=== PATIENT | male | born 1980 ===

== ENCOUNTER 2025-05-27 00:42 | Emergency (ER) | payer OTHER, SELFPAY ==
[2025-05-27 00:45] VITALS: BP 142/101
--- NOTE | 2025-05-27 02:30 | ED.SKININJ ---
HPI-Injury
General
Chief Complaint: Skin Problem
Source: patient
Exam Limitations: none
Time Seen by Provider: 05/27/25 02:08
Nursing documentation reviewed up to this point in time: agreed with
History of Present Illness-Injury
Initial Injury comments:
Note:
CHIEF COMPLAINT(S)
Suspected poison christin with swelling.
HISTORY OF PRESENT ILLNESS
The patient is a 44-year-old male presenting with concerns about a rash he believes to be poison christin. The patient reports swelling and redness, stating, 'its really swollen' and expressing concern over the appearance. The swelling appears to be more
pronounced in certain areas. The patient notes the swelling and the appearance of the rash is concerning him.
CHRONIC MEDICAL CONDITIONS SIGNIFICANTLY AFFECTING CARE
The patient is noted to not have diabetes.
PHYSICAL EXAM
General: Alert, no acute distress.
Skin: Redness and swelling observed at the site of suspected poison christin. Bilateral anterior forearms
Head: Normocephalic, atraumatic.
Neck: Supple, trachea midline.
Eye Ears, Nose, Mouth and Throat: Oral mucosa moist.
Cardiovascular: Normal peripheral perfusion, no edema.
Respiratory: Respirations are non-labored.
Back: Normal range of motion
Musculoskeletal: Normal range of motion, normal strength.
Neurological: Alert and oriented to person, place, time, and situation, no focal neurological deficit observed.
Psychiatric: Cooperative, appropriate mood & affect.
PLAN
The patient will be started on a course of steroids to reduce inflammation. Additionally, initiation of an antibiotic, likely Keflex (cephalexin), is planned due to the concern of infection from the redness and swelling around the affected area.
DIFFERENTIAL DIAGNOSIS
The Differential Diagnosis includes, in no particular order and is not limited to:
1. Contact dermatitis (possibly from poison christin).
2. Cellulitis.
3. Allergic reaction.
4. Insect bite or sting.
5. Erythema multiforme.
6. Impetigo.
7. Herpes zoster.
8. Eczema exacerbation.
9. Superficial thrombophlebitis.
10. Venous stasis dermatitis.
Disposition:
SUMMARY OF ENCOUNTER
The 44-year-old male presented with suspected poison christin contact dermatitis on his forearms, with the right forearm showing signs of developing cellulitis. A dose of dexamethasone was administered to address inflammation and Keflex (cephalexin) was
started to treat potential infection. The patient was discharged home.
DISPOSITION
Discharge
ASSESSMENT
Suspected poison christin contact dermatitis with developing cellulitis in the right forearm.
EMERGENCY TREATMENTS ADMINISTERED
Dexamethasone administered.
PLAN
The patient was started on cephalexin (Keflex) for potential cellulitis. Dexamethasone was administered to reduce inflammation.
MEDICATION RECONCILIATION
1. Cephalexin (Keflex) prescribed for cellulitis.
2. Dexamethasone dose administered for inflammation.
MEDICAL DECISION MAKING
-Complexity of Data Reviewed:
Contact dermatitis, possibly from poison christin. Developing cellulitis noted.
-Data:
Category 1
Cephalexin initiated for suspected cellulitis.
-Risk:
Prescription medication was prescribed: cephalexin (Keflex) for cellulitis.
DIAGNOSIS
L23.7 - Allergic contact dermatitis due to other plants
L03.113 - Cellulitis of the right upper limb
Phy Exam
Physical Exam
Physical Exam:
.
Course
Orders/Labs/Results
Orders:
Orders
05/27/25 02:28
Cephalexin Monohydrate [Keflex] 500 mg PO NOW STA
Dexamethasone Pf [Decadron] 10 mg PO NOW STA
Vital Signs
Initial and Last Documented VS:
Initial Vital Signs
Temp Pulse Resp BP Pulse Ox
98.7 F 99 16 142/101 97
05/27/25 00:45 05/27/25 00:45 05/27/25 00:45 05/27/25 00:45 05/27/25 00:45
Last Documented Vital Signs
Temp Pulse Resp BP Pulse Ox
98.7 F 99 16 142/101 97
05/27/25 00:45 05/27/25 00:45 05/27/25 00:45 05/27/25 00:45 05/27/25 00:45
*Pulse Oximetry
SaO2: 97
Oxygen Mode of Delivery: Room air
Patient hypoxic: no
*Critical Care Note
Total Time (30-74mins, 75-104mins- exclusive of procedures): Not Applicable
ED Attending Note
-
Portions of this chart may have been created with voice recognition software.� Occasional wrong word or��sound alike� substitutions may have occurred due to the inherent limitations of voice recognition software.
Discharge Plan
Departure
Patient Disposition: Home (Routine Discharge)
Date of Disposition: 05/27/25
Time of Disposition: 02:30
Patient with high blood pressure during this ER visit?: Yes
Condition: Good
Discharge Problem:
Poison christin dermatitis, Cellulitis
Instructions: Wound Care (DC), Poison Christin, Poison [place], Poison [place] [facility], Cellulitis (skin infection) in adults - ED discharge instructions, BLOOD PRESSURE
Prescriptions:
New
cephalexin 500 mg capsule
500 mg PO BID 7 Days Qty: 14 0RF
Activity Restrictions/Additional Instructions:
Thank You for choosing [facility].
It was a pleasure meeting you and taking part in your care. We hope for your continued healing and wellness.
Please read discharge instructions in their entirety. However, they are for general education and may not describe your exact diagnosis at discharge. Information on your ER visit and medical conditions were discussed with you along with appropriate
follow up information...
If indicated, please take your medications as instructed and indicated on discharge paperwork.
Please schedule a follow up appointment as directed. Call to schedule an appointment
Please return to the emergency department with ANY change in, persisting, or worsening of symptoms. If any of your symptoms do not improve, or persist, or become more severe within 6-12 hours, please return to the emergency department for further
care.
Please return to the emergency department if you develop a headache, neck pain/stiffness, fever greater than 100.4F, chest pain, shortness of breath, persistent nausea, vomiting, slurred speech, difficulty walking, numbness/tingling, weakness, signs
of infection or any other symptoms that are worrisome to you.
If you have any questions or concerns please do not hesitate to call the Hospital at or E-mail me directly at [email or web address]
Interventions
Interventions:
*Risk Screen - Suicide Last Done: 05/27/25 00:45
*General Assessment Last Done: 05/27/25 00:45
*Neglect/Abuse Screening Last Done: 05/27/25 00:45
Discharge Date and Time
Print Language: MAORI
[2025-05-27 03:04] VITALS: BMI 27.3
[2025-05-27] MEDS: KEFLEX 500 MG PO (03:04)
[2025-05-27] MEDS: DECADRON 10 MG PO (03:04)
[2025-05-27 03:16] VITALS: BP 131/99
== END 2025-05-27 03:19 | disposition home or self-care (01) ==
LOC: EMR 00:42
PROVIDERS: EMERGENCY PHYSICIAN Student in an Organized Health Care Education/Training Program
DX: L23.7 Allergic contact dermatitis due to plants, except food (principal); L03.113 Cellulitis of right upper limb
CPT/HCPCS: 99282

== ENCOUNTER 2025-06-17 19:08 | Emergency (ER) | payer OTHER, SELFPAY ==
[2025-06-17 19:09] VITALS: BP 148/100
[2025-06-17 19:14] VITALS: BP 136/101
--- NOTE | 2025-06-17 19:36 | ED.GENMED ---
History of Present Illness
General
Chief Complaint: Male Genito-Urinary Symptoms
Time Seen by Provider: 06/17/25 19:35
History of Present Illness
History of Present Illness:
Patient presents to the emergency department with dysuria, urinary frequency, darkening of his urine. Notes that he was having the symptoms when he was in [place] and went to an urgent care a few days ago. He was diagnosed with a UTI and started
on Bactrim as well as phenazopyridine. He notes that his dysuria has improved but he is having some right-sided flank discomfort. He also notes darkening of his urine and states it has turned orange. He is primarily here to have this evaluated.
Denies fevers or chills.
Phy Exam
Physical Exam
Physical Exam:
GENERAL APPEARANCE: NAD, well developed/ well nourished
EYES lids/conjunctiva normal
EARS/NOSE/THROAT Mucous membranes moist, uvula midline without oral pharyngeal erythema, exudate or swelling
HEAD/NECK normocephalic atraumatic, neck is supple.
RESPIRATORY respiratory effort normal, speaks in full sentences, no accessory muscle use. Lungs clear to auscultation without rhonchi, wheezes, rales
CARDIAC Regular rate and rhythm, no edema.
ABDOMINAL Soft, no distention. Mild suprapubic tenderness. No CVA tenderness.
MUSCLES/EXTREMITIES No abnormal range of motion, no swelling.
SKIN Warm, pink and dry. No rashes
NEUROLOGICAL Speech is clear and appropriate. Normal level of consciousness. 5/5 strength in all extremities.
PSYCH Normal mood and affect. Judgement/competence is appropriate
Course
Orders/Labs/Results
Orders:
Orders
06/17/25 19:47
CT Abd/pel Without Iv Or Oral Urgent
Comment:
Reason For Exam: hx of stones, hematuria, R flank pain
0.9% Sodium Chloride 1000 ml [Nss] 1,000 ml IV BOLUS
Ketorolac [Toradol] 15 mg IM NOW STA
06/17/25 19:57
Ketorolac [Toradol] 15 mg IV NOW STA
06/17/25 20:02
Complete Blood Count/With Diff Urgent
Comprehensive Metabolic Panel Urgent
Urinalysis Reflex To Culture Urgent
Date Specimen was Collected: 06/17/25
Time Specimen was Collected: 19:53
Urine Microscopic Reflex Cult Urgent
Urine Culture Urgent
AYANA Source: U
Specimen Description:
Obtained by: Random
Date Specimen was Collected: 06/17/25
Time Specimen was Collected: 19:53
06/17/25 20:16
CefTRIAXone [Rocephin] 1,000 mg IV NOW STA
06/17/25 20:19
Sterile Water [Sterile Water For Injection] 10 ml .ROUTE .[facility]
Abnormal Lab Results
06/17/25
20:02
WBC 15.3 H 10^3/uL
(4.8-10.8)
Abs Immat Gran (auto) 0.1 H 10^3/uL
(0-0.05)
Absolute Neuts (auto) 10.5 H 10^3/uL
(1.4-6.5)
Absolute Lymphs (auto) 3.7 H 10^3/uL
(1.2-3.4)
Absolute Monos (auto) 0.9 H 10^3/uL
(0.1-0.6)
Immature Gran % 0.9 H %
(0-0.5)
BUN 21 H mg/dl
(9-20)
Glucose 130 H mg/dl
(70-99)
Ur Occult Blood Reflex 1+ A
(Negative)
Urine Nitrite (Reflex) Positive A
(Negative)
Leukocyte Esterase Rfl 1+ A
(Negative)
Urine Bacteria (Reflex) Few A
(Negative)
06/17/25 20:02
06/17/25 20:02
Vital Signs
Initial and Last Documented VS:
Initial Vital Signs
Temp Pulse Resp BP Pulse Ox
98.5 F 106 20 148/100 96
06/17/25 19:09 06/17/25 19:09 06/17/25 19:09 06/17/25 19:09 06/17/25 19:09
Last Documented Vital Signs
Temp Pulse Resp BP Pulse Ox
98 F 102 14 114/65 96
06/17/25 20:42 06/17/25 20:42 06/17/25 20:42 06/17/25 20:42 06/17/25 20:42
*Pulse Oximetry
SaO2: 96
Oxygen Mode of Delivery: Room air
Patient hypoxic: no
*Critical Care Note
Total Time (30-74mins, 75-104mins- exclusive of procedures): Not Applicable
ED Attending Note
ED Attending Note
ED Attending Note:
Patient presents with continued symptoms and concerned about his darkening/orange-colored urine. I advised him that this color is likely from the Pyridium that he is taking. However, given his flank pain and continued symptoms, will rule out
infected stone as he has a history of kidney stones. Will check labs as well and rehydrate.
Patient is nontoxic-appearing. He is afebrile. Mild elevation in his white blood cell count likely in the setting of his UTI. His symptoms however are not getting significantly worse and his darkening of the urine is likely from Pyridium. Urine
with only 3-5 white blood cells per high-powered field. Given a dose of ceftriaxone and instructed to continue his Bactrim. There is a nonobstructing kidney stone on the CT scan.
-
Portions of this chart may have been created with voice recognition software.� Occasional wrong word or��sound alike� substitutions may have occurred due to the inherent limitations of voice recognition software.
Discharge Plan
Departure
Patient Disposition: Home (Routine Discharge)
Date of Disposition: 06/17/25
Time of Disposition: 20:41
Patient with high blood pressure during this ER visit?: Yes
Discharge Problem:
Acute UTI, Kidney stone on right side
Instructions: Urinary tract infections in adults
Prescriptions:
No Action
prednisone 10 mg Tablet
10 mg PO DAILY
sulfamethoxazole-trimethoprim 800-160 mg Tablet
1 tab PO BID
phenazopyridine 100 mg Tablet
100 mg PO TID
Referrals:
NONE,* [Family Provider, Internal Medicine]
Activity Restrictions/Additional Instructions:
Please continue the antibiotics as prescribed. Follow-up with your primary doctor. Return to the emergency department with fevers or worsening symptoms. The Pyridium will cause your urine to be orange just or reddish in color.
Interventions
Interventions:
*Risk Screen - Suicide Last Done: 06/17/25 19:09
*General Assessment Last Done: 06/17/25 19:09
*Neglect/Abuse Screening Last Done: 06/17/25 19:09
*ED- Fall Risk Assessment Last Done: 06/17/25 19:09
*ED COVID-19 Vaccine History Last Done: 06/17/25 19:09
*Nursing Disposition Last Done: 06/17/25 20:56
ED-Male Genitourinary Assessment Last Done: 06/17/25 20:08
Discharge Date and Time
Discharge Date/Time: 06/17/25 20:56
Print Language: YI
[2025-06-17 19:52] VITALS: BMI 30.5
[2025-06-17] MEDS: NSS 1000 IV (20:03)
[2025-06-17] MEDS: TORADOL 15 MG IV (20:03)
--- NOTE | 2025-06-17 20:10 | EDRN ---
Pt diagnosed with uti 2 days ago and started on abx. Burning and pain with urination are gone. Pt complains of pain L flank that goes into L abdomen. Pt concerned because he noticed blood in his urine today which prompted ED visit. Pt also has a
headache - no pain medication prior to arrival. Pt denies cp, sob, fever/chills/cough, n/v/c/d. Hx kidney stone but pt says this pain feels different.
[2025-06-17 20:12] LABS: Hematocrit 46.1 % (39.0-52.0); Hemoglobin 15.4 g/dL (13.0-18.0); Mean Corp Hgb Conc. 33.4 g/dL (33.0-37.0); Mean Corpuscular Volume 92.0 fL (80.0-94.0); Nucleated Red Blood Cells % 0 % (-); Platelet Count 202 10^3/uL (130-400); Red Cell Dist. Width 13.2 % (11.5-14.5)
[2025-06-17 20:13] LABS: Urine Character Clear (Clear)
[2025-06-17] MEDS: ROCEPHIN 1000 MG IV (20:22)
[2025-06-17 20:24] LABS: Urine Red Blood Cell 0-2 /HPF (0-2)
[2025-06-17 20:27] LABS: ALT (SGPT) 43 U/L (0-50); AST (SGOT) 30 U/L (17-59); Albumin 4.8 g/dl (3.5-5.0); Alkaline Phosphatase 62 U/L (38-126); Blood Urea Nitrogen 21 mg/dl (9-20); Calcium 9.6 mg/dl (8.4-10.2); Carbon Dioxide 27 mmol/L (22-30); Chloride 101 mmol/L (98-107); Estimated Creatinine Clearance 101 ml/min; Glucose 130 mg/dl (70-99); Potassium 4.2 mmol/L (3.5-5.1); Sodium 138 mmol/L (135-145); Total Protein 7.8 g/dl (6.3-8.2); eGFR > 60.00
[2025-06-17 20:42] VITALS: BP 114/65
== END 2025-06-17 20:56 | disposition home or self-care (01) ==
LOC: EMR 19:08
PROVIDERS: EMERGENCY PHYSICIAN Emergency Medicine
DX: N39.0 Urinary tract infection, site not specified (principal); N20.0 Calculus of kidney
CPT/HCPCS: 99284; 96374; 96375; 96361; 74176; 80053; 81003; 81015; 85025; 87086